=== PATIENT | male | born 1990 | race Caucasian/White ===

== ENCOUNTER 2017-05-09 13:31 | Emergency (ER) | payer SELFPAY ==
[~2017-05-09] VITALS: Ht 182.9 cm; Wt 91.3 kg
[~2017-05-09 13:31] MED LIST: NAPR1TAB9 PO
[2017-05-09 13:37] VITALS: TEMP 36.3; Ht 182.9 cm; Wt 91.3 kg
[2017-05-09] MEDS ORDERED: XYLOCAINE 1%/SOD BICARB 20 ML VIAL INFIL ONE (13:45)
--- NOTE | 2017-05-09 14:33 | DIAGNOSTIC IMAGING REPORT ---
R FINGER(S) MIN 2 VIEWS ROUTINE CLINICAL HISTORY: thumb laceration COMPARISON STUDY: None. FINDINGS: Soft tissue laceration within the distal right thumb within underlying mildly displaced transverse fracture through the distal tuft. No radiopaque foreign bodies. No dislocation. IMPRESSION: Mildly displaced transverse fracture through the distal tuft of the right thumb. Electronically signed by: Steve Zhu M.D. 05/09/2017 2:32 PM Dictated Date/Time: 05/09/2017 2:27 PM
[2017-05-09] MEDS ORDERED: CEPH500C PO (15:36)
[2017-05-09] MEDS ORDERED: DIPHTHERIA/TETANUS/PERTUSSIS 0.5 ML SYR/VIAL ONE (16:02)
[2017-05-09 16:11] VITALS: BP 163/93; PULSE 76; O2SAT 98
--- NOTE | 2017-05-09 20:08 | EMERGENCY ROOM VISIT NOTE ---
ED Visit Note First contact with patient: 13:42 Chief complaint: Right thumb laceration HPI: This 27-year-old white male presents for evaluation of a laceration at the tip of his right thumb. The patient was planning a board today when it kicked out and struck him in the right thumb. He had immediate onset of pain. There is a laceration through the thumbnail. Bleeding was controlled with pressure. He denies any numbness, tingling, or loss of motion. No other complaints. Left hand dominant. Tetanus is believed to be up-to-date. Pain is 3/10. Supplemental sheet was reviewed and signed. Previous surgeries: None Medical history: Benign Current Medications: None Allergies: NKDA Tetanus: Greater than 10 years Family History: Unremarkable. Parents are living. Social History: Unemployed. Lives with his parents. No tobacco use, occasional EtOH use. REVIEW OF SYSTEM: HEENT: No dizziness, visual problems, hearing loss, or tinnitus. There is no difficulty swallowing and no oral lesions are present. PULMONARY: No cough, shortness of breath, sputum production or hemoptysis. CARDIOVASCULAR: No chest pain, palpitations, shortness of breath or peripheral edema. GASTROINTESTINAL: No diarrhea, constipation, nausea, vomiting, or abdominal pain. GENITOURINARY: No dysuria, frequency, urgency or nocturia. NEUROLOGIC: No weakness, muscle tenderness, epilepsy or history of neurological problems. MUSCULOSKELETAL: No history of joint tenderness/swelling. SKIN: No rashes or lesions. PSYCHIATRIC: No history of depression or mental illness. ENDOCRINE: No history of diabetes, thyroid disorders, or abnormal hair growth. Physical Exam: Vitals: Afebrile. Reviewed and filed in patient's chart General: Well-developed, well-nourished, young white male, in no acute distress. Obvious discomfort. He is sitting on the bed. Alert and oriented. Skin: Warm and dry with good turgor. No rashes. No ecchymosis or erythema. The patient is not diaphoretic. No abrasions. The patient has a 1.5 cm laceration present through the right thumb nail. It is transverse. Bleeding is controlled. No foreign material is visible. Musculoskeletal: Patient has no discomfort with palpation over his first through fifth metacarpals. Full range of motion of the wrist. No pain with palpation over his first MCP joint, proximal phalanx, or IP joint. He does have pain with palpation over the distal phalanx. Intact motor function to the MCP and IP joints. Neurologic: Gross sensation is intact across the right thumb by soft touch. Data: Radiographic imaging obtained today of the right thumb was reviewed by me and read by radiology. He has a tuft fracture. Impression: Right thumb 1.5 cm laceration with nailbed involvement. Right thumb open tuft fracture Procedure: Informed oral consent was obtained for repair. Right thumb was prepped with Betadine and draped with a sterile towel. Area was anesthetized using 5 mL 1% plain buffered lidocaine in a digital block. Finger tourniquet was applied for better visualization. This was in place for approximately 12 minutes. Thorough inspection was performed. Distal fragment of nail was removed using blunt dissection using iris scissors. Proximal nail section was elevated off of the nail bed but left under the cuticle and in the nail fold. Bone was visualized. Wound was irrigated copiously using Betadine diluted with normal sterile saline under jet spray lavage. Nailbed Wound was closed using 5- 0 Vicryl 4. Proximal nail was then reduced and tacked in place using 4-0 nylon 3. Good wound edge approximation was achieved. Hemostasis was achieved. Bacitracin dressing was applied. Plan: Patient was educated regarding today's findings. Conservative care measures were discussed. Keep the thumb protected for 24 hours. Cleanse the wound daily with soap and water and reapply a small amount of bacitracin. Ice and elevate intermittently as needed for discomfort. Tylenol and ibuprofen every 6 hours as needed for pain. Wound care handout was provided. Sutures out in 12 days. He may shower starting tomorrow. Avoid soaking or swimming for two weeks. Return to the ER for any acute changes or signs of infection. Because of the open fracture, he was started on Keflex 500 mg 4 times a day 7 days. Prescription was provided. He understands that the nail may have a small region it due to the disruption of the nailbed. Hopefully it grows back as an entirely normal nail. Risks of infection were discussed at length and he is aware of what to look for. Problem List Medical Problems: (1) MRSA (methicillin resistant Staphylococcus aureus) infection Status: Resolved Current/Historical Medications Scheduled Cephalexin Monohydrate (Keflex), 500 MG PO QID Allergies Coded Allergies: No Known Allergies (Unverified , 05/09/17) Vital Signs Date Time Temp Pulse Resp B/P (MAP) Pulse Ox O2 Delivery O2 Flow Rate FiO2 05/09/17 16:11 76 21 163/93 98 05/09/17 13:37 36.3 62 18 164/90 100 Room Air Medications Administered Medications (Trade) Dose Ordered Sig/Aracely Route Start Time Stop Time Status Last Admin Dose Admin Diphtheria/ Pertussis/Tetanus Vacc (Adacel Inj) 0.5 ml STK-MED ONCE .ROUTE 05/09/17 16:02 05/09/17 16:03 DC 05/09/17 16:04 0.5 ML Departure Information Prescriptions Cephalexin Monohydrate (Keflex) 500 Mg Cap 500 MG PO QID, #28 CAP Prov: Jerry Mcgowan,P.A. 05/09/17 Referrals No Doctor, Assigned (PCP) Patient Instructions [facility]
== END 2017-05-09 16:10 | disposition home or self-care (01) ==
LOC: C.EDB 13:32 → C.EDD 16:10
DX: S61.111A Laceration without foreign body of right thumb with damage to nail, initial encounter (principal); S62.501B Fracture of unspecified phalanx of right thumb, initial encounter for open fracture; X58.XXXA Exposure to other specified factors, initial encounter; Z23 Encounter for immunization

== ENCOUNTER 2017-05-25 15:29 | Emergency (ER) | payer SELFPAY ==
[~2017-05-25] VITALS: Ht 182.9 cm; Wt 96.7 kg
[~2017-05-25 15:29] MED LIST changes: +CEPH500C PO; -NAPR1TAB9 PO
[2017-05-25 15:36] VITALS: TEMP 36.5; Ht 182.9 cm; Wt 96.7 kg
[2017-05-25] MEDS ORDERED: ACET-1311 PO (15:48)
--- NOTE | 2017-05-25 16:07 | EMERGENCY ROOM VISIT NOTE ---
ED Visit Note First contact with patient: 15:40 CHIEF COMPLAINT: Suture removal HPI: This patient returns to the ED today for removal of sutures that were placed 16 days ago. There has been no swelling, redness, or drainage from the wound. The patient feels like the laceration is healing well. He has been changing dressings every 1-2 days. He states he is pain-free unless he strikes the tip of the thumb against an object. REVIEW OF SYSTEMS: A complete 6 point review of systems was reviewed with the patient with pertinent positives and negatives as per history of present illness. All else were negative. PMH: The patient is healthy; there is no significant medical or surgical history. MEDS: Acetaminophen ALLERGIES: None SOCIAL HISTORY: Patient lives locally with family. He denies drug, alcohol use. PHYSICAL EXAM: Vital Signs: Reviewed Nurse's notes. There is a sutured wound on the right thumb - sutures through the nail, with no signs of infection, however, there is a small amount of pus in the bandage. There is no erythema, swelling, or tenderness. EMERGENCY DEPARTMENT COURSE: The 3 sutures were removed without any difficulty and there was no separation of the wound edges. The nail did not lift from the nail bed. DIFFERENTIAL DIAGNOSIS: Laceration, fracture of the distal phalanx, infection, cellulitis, dehisced wound DIAGNOSIS: Healing laceration and suture removal Problem List Medical Problems: (1) MRSA (methicillin resistant Staphylococcus aureus) infection Status: Resolved Current/Historical Medications Scheduled PRN Acetaminophen (Tylenol), 650 MG PO Q6H PRN for Pain Allergies Coded Allergies: No Known Allergies (Unverified , 05/09/17) Vital Signs Date Time Temp Pulse Resp B/P (MAP) Pulse Ox O2 Delivery O2 Flow Rate FiO2 05/25/17 16:17 79 20 99 05/25/17 15:36 36.5 79 20 154/98 99 Room Air Departure Information Impression Primary Impression: Encounter for removal of sutures Additional Impressions: Laceration of thumb with damage to nail Thumb fracture Dispostion Home / Self-Care Condition GOOD Referrals No Doctor, Assigned (PCP) Jerry Mcgowan,P.A. Patient Instructions ED Wound Check Sutr Remove No Infec, [facility] Additional Instructions You were seen today for wound re-check and suture removal. The wound appears to be healing well, however, there is still some pus-like drainage without erythema or swelling. Continue to monitor the wound for swelling or redness or increased pain and follow-up with orthopedics or back here in the ED for further evaluation. Sutures were removed without difficulty. Continue to monitor the fingernail for the nail to grow into the nail bed. Ibuprofen(Motrin, Advil) may be used for fever or pain. Use 600mg every six hours as needed. Take with food. Avoid using more than 2400mg in a 24 hour period. Do not use 2400mg per day for more than three consecutive days without physician direction. Prolonged inappropriate use can lead to stomach upset or ulcers. (AND/OR) Acetaminophen(Tylenol) may be used for fever or pain. Use 1000mg every six hours as needed. Avoid using more than 3000mg in a 24 hour period. Follow-up with [facility] for re-check in 2-3 weeks or for any complications. Return to the ED for worsening redness, swelling ,pain, fever, chills, nausea, vomiting, or increased pus-like drainage. Problem Qualifiers Additional Impressions: Laceration of thumb with damage to nail Encounter type: subsequent encounter Foreign body presence: without foreign body Laterality: right Qualified Codes: S61.111D - Laceration without foreign body of right thumb with damage to nail, subsequent encounter Thumb fracture Encounter type: initial encounter Fracture type: open Phalanx: distal Fracture alignment: nondisplaced Laterality: right Qualified Codes: S62.524B - Nondisplaced fracture of distal phalanx of right thumb, initial encounter for open fracture
[2017-05-25 16:17] VITALS: BP 154/98; PULSE 79; O2SAT 99
== END 2017-05-25 16:18 | disposition home or self-care (01) ==
LOC: C.EDB 15:29 → C.EDD 16:18
DX: S61.111D Laceration without foreign body of right thumb with damage to nail, subsequent encounter (principal); S62.524B Nondisplaced fracture of distal phalanx of right thumb, initial encounter for open fracture; X58.XXXD Exposure to other specified factors, subsequent encounter; X58.XXXA Exposure to other specified factors, initial encounter